=== PATIENT | female | born 1970 | race Caucasian/White ===

== ENCOUNTER → 2021-06-28 | Day surgery (SDC) | payer OTHER ==
[~2021-06-28] VITALS: Ht 162.6 cm; Wt 84.9 kg
[~2021-06-28] MED LIST: BACLOFEN10 MG PO; DULOXETINE HCL60 MG PO; LISINOPRIL10 MG PO; NORCO 5-325 TA1 EACH PO; NORCO 5/3251 EACH PO; ONDANSETRON ODT8 MG PO; PRILOSEC20 MG PO; PROMETHAZINE HC25 M1 PO
[2021-06-28 10:16] LABS: HCT 35.2 % (37.0-47.0); HGB 11.8 g/dl (12.5-16.0); MCH 32.5 pg (25.0-31.0); MCHC 33.5 g/dL (32.0-36.0); MPV 10.7 fL (6.0-9.5); RBC 3.63 M/uL (4.20-5.40); RDW 14.1 % (11.5-14.0); WBC 11.2 K/uL (4.0-10.5)
[2021-06-28 10:35] LABS: ALBUMIN 3.2 g/dL (3.4-5.0); BILIRUBIN - TOTAL 0.5 mg/dL (0.2-1.0); BUN/CREAT RATIO (CALC) 8.3 RATIO; CREATININE 0.96 mg/dL (0.51-0.95); GLOBULIN (CALCULATION) 3.6 g/dL; POTASSIUM 3.8 mmol/L (3.5-5.1); TOTAL PROTEIN 6.8 g/dL (6.4-8.2)
== END | disposition home or self-care (01) ==
LOC: FAS 08:29
PROVIDERS: Surgery
DX: D17.1 Benign lipomatous neoplasm of skin and subcutaneous tissue of trunk (principal); N64.4 Mastodynia; I10 Essential (primary) hypertension; K50.90 Crohn's disease, unspecified, without complications; G43.909 Migraine, unspecified, not intractable, without status migrainosus; Z90.49 Acquired absence of other specified parts of digestive tract; F17.210 Nicotine dependence, cigarettes, uncomplicated; Z88.5 Allergy status to narcotic agent; R94.31 Abnormal electrocardiogram [ECG] [EKG]; F32.A Depression, unspecified
CPT/HCPCS: 36415; 80053; 84703; 93005; J1100; J1885; J2250; J2405; J2704; J3010; J7120